=== PATIENT | female | born 1965 | race African-American/Black ===

== ENCOUNTER → 2017-11-16 | Outpatient (CLI) | payer OTHER ==
[~2017-11-16] VITALS: Ht 165.1 cm; Wt 64.4 kg
[~2017-11-16] MED LIST: ASPIRIN EC81 M1 OR; CENTRUM SILVER1 EAC4 PO; CENTRUM TABLET1 TAB OR; CIPROFLOXACIN500 M3 OR; HAIR, SKIN & N1 EAC2 PO; HYDROCODON-ACE1 EAC7 PO; NAPROSYN500 MG OR; ZYRTEC10 M5 PO
--- NOTE | ~2017-11-16 | P ---
[facility] [place] [address] PROCEDURE REPORT Name: DEVYN DENTON Room #: REG [facility] Francisco Javier#: [id number] Admission: 11/16/17 Attend Phys: Alejandro Brady Discharge: Date of : 63 Report #: [id number] THIS REPORT FOR: //name// CC: Alejandro Meadows MD DATE OF SERVICE: 11/16/2017 PROCEDURE PERFORMED: Colonoscopy. HISTORY OF PRESENT ILLNESS: The patient is a 52-year-old female who presents today for routine screening colonoscopy. She denies any symptoms. No family history of colon cancer. DESCRIPTION OF PROCEDURE: The risks and benefits of the procedure were explained to the patient, those risks including but not limited to bleeding, perforation and the risk of sedation. She understood these risks and gave informed consent. Sedation was given using propofol per anesthesia. Next, a digital rectal exam was initially performed, which was normal. Next, using a standard Fujinon colonoscope, the scope was placed in the patient's anus and advanced under direct vision to the cecum. The overall prep was good. The cecum and the ileocecal valve were normal in appearance. Ascending, transverse, descending and sigmoid colon were all normal. The rectal mucosa was normal. On retroflexion, no abnormalities were noted. The scope was then withdrawn and the procedure terminated. The patient tolerated the procedure well. IMPRESSION: Normal colonoscopy. RECOMMENDATIONS: Repeat colonoscopy in 10 years. Thank you for allowing me to participate in her care. <ELECTRONICALLY SIGNED> By: Alejandro Toribio MD 11/16/17 1622 [id number] Alejandro Toribio MD /nt
== END | disposition home or self-care (01) ==
LOC: GI 06:39
DX: Z12.11 Encounter for screening for malignant neoplasm of colon (principal); Z98.890 Other specified postprocedural states
CPT/HCPCS: 62110

== ENCOUNTER → 2018-08-14 | Outpatient (CLI) | payer OTHER | LOC: BC 03:17 | DX: Z12.31 Encounter for screening mammogram for malignant neoplasm of breast (principal) ==

== ENCOUNTER → 2019-08-21 | Outpatient (CLI) | payer OTHER | LOC: RAD 03:00 | DX: Z12.31 Encounter for screening mammogram for malignant neoplasm of breast (principal) ==

== ENCOUNTER → 2020-08-23 | Outpatient (CLI) | payer OTHER | LOC: BC 10:22 | PROVIDERS: ATTEND Family Medicine | DX: Z12.31 Encounter for screening mammogram for malignant neoplasm of breast (principal) ==

== ENCOUNTER → 2021-08-24 | Outpatient (CLI) | payer OTHER | END | disposition home or self-care (01) | LOC: RAD 14:58 | PROVIDERS: ATTEND Family Medicine | DX: Z12.31 Encounter for screening mammogram for malignant neoplasm of breast (principal) ==